=== PATIENT | female | born 1990 | race Caucasian/White ===

== ENCOUNTER → 2017-01-25 | Outpatient (CLI) | payer OTHER | LOC: MW.CHOBGYN 14:25 | PROVIDERS: ATTEND Nurse Practitioner Women's Health | DX: E03.9 Hypothyroidism, unspecified (principal); E66.01 Morbid (severe) obesity due to excess calories | CPT/HCPCS: 36415; 80053; 84443 ==

== ENCOUNTER → 2017-03-18 | Outpatient (CLI) | payer OTHER | END | disposition home or self-care (01) | LOC: MW.CHOBGYN 09:44 | PROVIDERS: ATTEND Nurse Practitioner Women's Health | DX: Z30.09 Encounter for other general counseling and advice on contraception (principal) | CPT/HCPCS: 36415; 84443; 87491; 87591 ==

== ENCOUNTER 2021-01-17 14:51 | Emergency (ER) | payer OTHER ==
--- NOTE | 2021-01-17 15:04 | PCM.EKG ---
#2 Interpretation EKG Date: 01/17/21 Time: 02:55 Rhythm: NSR Rate (Beats/Min): 79 [place]: Normal P-Wave: Present QRS: Normal ST-T: Normal QT: Normal IN/PQ Interval: 154 EKG Interpretation Comments: no evidence acute ischemia
[2021-01-17] MEDS ORDERED: LORazepam 2 MG/ML SDV IVPUSH ONE (15:31)
--- NOTE | 2021-01-17 15:37 | EDM.PDOC ---
ED HPI GENERAL MEDICAL PROBLEM - General Chief Complaint: General Stated Complaint: TREMORS SHORT OF BREATHE Time Seen by Provider: 01/17/21 14:54 Source of Information: Reports: Patient History Limitations: Reports: No Limitations - History of Present Illness INITIAL COMMENTS - FREE TEXT/NARRATIVE: 30-year-old presents reporting a 7-hour history of palpitations, a feeling like she cannot catch her breath, shaking, chest tightness. She has had this occasionally in the past but it was rather fleeting. On this occasion it did not she began seeing a primary provider who got her back on her medication and she has been taking it consistently since then. She is otherwise healthy without chronic medical problems except for hypothyroidism. She states she had stopped taking her thyroid medication but has been taking it consistently in the last 2 months. The patient admits to drinking at least 2 drinks daily on weekdays but on weekends is intoxicated both days. 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 chest Pain Score (Numeric/FACES): 2 - Related Data Allergies Allergy/AdvReac Type Severity Reaction Status Date / Time No Known Allergies Allergy Verified 01/17/21 14:59 Home Meds: Home Meds Levothyroxine Sodium [Synthroid] mcg PO DAILY 01/17/21 [History] Past Medical History Endocrine/Metabolic History: Reports: Hypothyroidism - Infectious Disease History Infectious Disease History: Reports: None - Past Surgical History GI Surgical History: Reports: Bariatric Procedure Social & Family History - Family History Family Medical History: No Pertinent Family History - Caffeine Use Caffeine Use: Reports: None - Recreational Drug Use Recreational Drug Use: No ED ROS GENERAL - Review of Systems Review Of Systems: Comprehensive ROS is negative, except as noted in HPI. ED EXAM, GENERAL - Physical Exam Exam: See Below Exam Limited By: No Limitations General Appearance: Alert, No Apparent Distress Ears: Normal External Exam Nose: Normal Inspection Throat/Mouth: Normal Inspection Head: Atraumatic, Normocephalic Neck: Normal Inspection Respiratory/Chest: No Respiratory Distress, Lungs Clear, Normal Breath Sounds Cardiovascular: Normal Peripheral Pulses, Regular Rate, Rhythm, No Murmur Back Exam: Normal Inspection Extremities: Normal Inspection Neurological: Alert, Oriented, Normal Cognition Psychiatric: Normal Affect, Normal Mood Skin Exam: Warm, Dry, Intact, Normal Color, No Rash Lymphatic: No Adenopathy Course - Vital Signs Last Recorded V/S: Last Vital Signs Temp 36.2 C 01/17/21 14:54 Pulse 88 01/17/21 14:54 Resp 21 H 01/17/21 14:54 BP 142/92 H 01/17/21 14:54 Pulse Ox 100 01/17/21 14:54 - Orders/Labs/Meds Orders: Active Orders 24 hr Category Date Time Status CBC WITH AUTO DIFF [HEME] Stat Lab 01/17/21 15:31 Ordered CMP [COMPREHENSIVE METABOLIC PN,CMP] [CHEM] Stat Lab 01/17/21 15:31 Ordered TSH [CHEM] Stat Lab 01/17/21 15:31 Ordered - Re-Assessments/Exams Free Text/Narrative Re-Assessment/Exam: 01/17/21 16:16 Patient states her symptoms have resolved and she feels much better. She now reports that she does have a history of anxiety symptoms including constant every day worry, worry to no specific threat, worry about a variety of topics and events accompanied by restlessness, sleep problems, racing thoughts. She previously has tried to manage her symptoms with meditation but now states "I guess that has not been working". Departure - Departure Time of Disposition: 16:16 Disposition: Home, Self-Care 01 Condition: Good Clinical Impression: Panic anxiety syndrome - Discharge Information Referrals: Yakelin Fernandes PA [Physician [employer]] - Additional Instructions: The following information is given to patients seen in the emergency department who are being discharged to home. This information is to outline your options for follow-up care. We provide all patients seen in our emergency department with a follow-up referral. The need for follow-up, as well as the timing and circumstances, are variable depending upon the specifics of your emergency department visit. If you don't have a primary care physician on staff, we will provide you with a referral. We always advise you to contact your personal physician following an emergency department visit to inform them of the circumstance of the visit and for follow-up with them and/or the need for any referrals to a consulting specialist. The emergency department will also refer you to a specialist when appropriate. This referral assures that you have the opportunity for follow-up care with a specialist. All of these measure are taken in an effort to provide you with optimal care, which includes your follow-up. Under all circumstances we always encourage you to contact your private physician who remains a resource for coordinating your care. When calling for follow-up care, please make the office aware that this follow-up is from your recent emergency room visit. If for any reason you are refused follow-up, please contact the [facility] Emergency Department at and asked to speak to the emergency department charge nurse. 1. Please follow-up with your primary care provider as you have been doing to manage your thyroid disease, medication monitoring, and medication dosages. Your TSH is still very high at 56. 2. Please discuss anxiety with your primary care provider. 3. Please follow-up with your primary provider regarding your elevated liver enzymes and management of your alcohol abuse disorder. Sepsis Event Note (ED) - Evaluation Sepsis Screening Result: No Definite Risk - Focused Exam Vital Signs: Vital Signs Temp Pulse Resp BP Pulse Ox 01/17/21 14:54 36.2 C 88 21 H 142/92 H 100 - My Orders Last 24 Hours: My Active Orders 01/17/21 15:31 CBC WITH AUTO DIFF [HEME] Stat CMP [COMPREHENSIVE METABOLIC PN,CMP] [CHEM] Stat TSH [CHEM] Stat - Assessment/Plan Last 24 Hours: My Active Orders 01/17/21 15:31 CBC WITH AUTO DIFF [HEME] Stat CMP [COMPREHENSIVE METABOLIC PN,CMP] [CHEM] Stat TSH [CHEM] Stat
[2021-01-17 15:57] LABS: BLOOD UREA NITROGEN,BUN 7 mg/dL (7.0-18.0); CARBON DIOXIDE,CO2 23.8 mmol/L (21.0-32.0); CHLORIDE,CL 100 mmol/L (98-107); GLUCOSE RANDOM 91 mg/dL (74-106); POTASSIUM,K 3.7 mmol/L (3.5-5.1); SODIUM,NA 137 mmol/L (136-145)
== END 2021-01-17 16:31 | disposition home or self-care (01) ==
LOC: MW.ED 14:51
DX: F41.0 Panic disorder [episodic paroxysmal anxiety] (principal); E03.9 Hypothyroidism, unspecified; Z79.899 Other long term (current) drug therapy
CPT/HCPCS: 36415; 80053; 84443; 84484; 85025; 93005; 96374; 99284; J2060; 93010; 99282

== ENCOUNTER 2024-11-09 18:11 | Emergency (ER) | payer SELFPAY ==
[2024-11-09 19:09] LABS: BASOPHILS ABSOLUTE AUTO 0.05 K/uL (0.00-0.20); BASOPHILS PERCENT AUTO 1.6 % (0.0-1.0); EOSINOPHILS ABSOLUTE AUTO 0.09 K/uL (0.00-0.45); EOSINOPHILS PERCENT AUTO 2.9 % (0.0-6.0); HEMATOCRIT 31.8 % (37.0-47.0); HEMOGLOBIN 11.1 g/dL (12.0-16.0); IMMATURE GRAN ABSOLUTE AUTO 0.01 K/uL (0.00-0.05); IMMATURE GRAN PERCENT AUTO 0.3 % (0.0-0.4); LYMPHOCYTES ABSOLUTE AUTO 1.01 K/uL (1.00-4.80); LYMPHOCYTES PERCENT AUTO 32.8 % (24.0-44.0); MEAN CORPUSCULAR HEMOGLOBIN 34.6 pg (28.0-32.0); MEAN CORPUSCULAR HGB CONC 34.9 g/dL (32.0-36.0); MEAN CORPUSCULAR VOLUME 99.1 fL (83.0-99.0); MEAN PLATELET VOLUME 9.4 fL (9.4-12.3); MONOCYTES ABSOLUTE AUTO 0.24 K/uL (0.00-0.80); MONOCYTES PERCENT AUTO 7.8 % (0.0-8.0); NEUTROPHILS ABSOLUTE AUTO 1.68 K/uL (1.80-7.70); NEUTROPHILS PERCENT AUTO 54.6 % (41.0-71.0); PLATELET COUNT,PLT 115 K/uL (150-400); RED BLOOD CELL COUNT 3.21 M/uL (4.10-5.30); WHITE BLOOD CELL COUNT,WBC 3.08 K/uL (3.9-11.3)
[2024-11-09 19:35] LABS: A/G RATIO 0.7 (0.9-1.6); BILIRUBIN TOTAL 1.9 mg/dL (0.2-1.0); CALCIUM 8.4 mg/dL (8.5-10.1); CARBON DIOXIDE,CO2 26.1 mmol/L (21.0-32.0); CREATININE 0.7 mg/dL (0.6-1.0); EST CRCL DRUG DOSING (CG) 108.04 mL/min; POTASSIUM,K 2.9 mmol/L (3.5-5.1); PROTEIN TOTAL,TP 7.6 g/dL (6.4-8.2)
[2024-11-09] MEDS: Potassium Chloride 20 MEQ Tab.ER PO ONE (20:53)
== END 2024-11-09 21:02 | disposition home or self-care (01) ==
LOC: MW.ED 18:11
DX: M62.830 Muscle spasm of back (principal); E87.6 Hypokalemia; E03.9 Hypothyroidism, unspecified; Z79.899 Other long term (current) drug therapy; Z86.16 Personal history of COVID-19
CPT/HCPCS: 36415; 71045; 80053; 84484; 85025; 93005; 99284; A9270